=== PATIENT | male | born 1995 | race Caucasian/White ===

== ENCOUNTER 2017-08-11 01:59 | Emergency (ER) | payer MEDICAID ==
[2017-08-11] MEDS ORDERED: LIDOCAINE 5% (700 MG) TRANSDERMAL ADH..PATCH TP ONE (02:36)
--- NOTE | 2017-08-11 04:37 | RADIOLOGY REPORT (SQ) ---
EXAM DESCRIPTION: HIP RIGHT AP/LATERAL COMPLETED DATE/TIME: 08/11/2017 4:20 am REASON FOR STUDY: hip pain COMPARISON: None. NUMBER OF VIEWS: Two views. TECHNIQUE: AP pelvis and additional frog-leg view of the right hip. LIMITATIONS: None. FINDINGS: MINERALIZATION: Normal. RIGHT HIP: No fracture or dislocation. No worrisome bone lesions. LEFT HIP: No fracture or dislocation. No worrisome bone lesions. PUBIS AND ISCHIUM: No fracture. PELVIS: No fracture. SACRUM: No fracture or dislocation. No worrisome bone lesions. LOWER LUMBAR SPINE: No fracture or dislocation. No worrisome bone lesions. No significant disc disea se. SOFT TISSUES: No findings. OTHER: No other significant finding. IMPRESSION: NEGATIVE STUDY OF THE RIGHT HIP. NO RADIOGRAPHIC EVIDENCE OF ACUTE INJURY. TECHNICAL DOCUMENTATION: JOB ID: [id number] [employer]- All Rights Reserved
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
[2017-08-11 04:52] VITALS: BP 98/56
== END 2017-08-11 04:52 | disposition home or self-care (01) ==
LOC: ER 01:59
DX: G89.29 Other chronic pain (principal); M25.551 Pain in right hip; R68.84 Jaw pain; Z98.890 Other specified postprocedural states; F17.200 Nicotine dependence, unspecified, uncomplicated
CPT/HCPCS: 99283; 73502; J3490

== ENCOUNTER 2018-09-05 19:41 | Emergency (ER) | payer MEDICAID ==
--- NOTE | 2018-09-05 21:32 | RADIOLOGY REPORT (SQ) ---
EXAM DESCRIPTION: XR SHOULDER 2 OR MORE VIEWS COMPLETED DATE/TME: 09/05/2018 20:59 CLINICAL HISTORY: 23 years, Male, ? AC separation. but need y view too Findings: Bony alignment is anatomic. No fracture or dislocation. The acromioclavicular joint is intact. Soft tissues are unremarkable. IMPRESSION: No fracture.
--- NOTE | 2018-09-05 21:57 | ER Document Report ---
ED Extremity Problem, Upper - General Chief Complaint: Shoulder Pain Stated Complaint: RIGHT SHOULDER PAIN Time Seen by Provider: 09/05/18 20:48 Mode of Arrival: Ambulatory Information source: Patient Notes: Patient is a 23-year-old male comes emergency room complaint right shoulder pain. Patient states that he has had a shoulder since he was 17 years old playing a basketball game. He also states that he has recently gone through some type of a radiology facility and had his shoulder x-rayed and was told that it is and that it has fluid. Patient states this past week is gotten worse and he is been doing push-ups and he feels it grinding in there and it becomes more painful. Originally patient had indicated that the shoulder was /dislocated since he was 17 years old then it was changed to AC separation. 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 TRAVEL OUTSIDE OF THE [place] IN LAST 30 DAYS: No - HPI Patient complains to provider of: Injury Onset: Other - Acute on chronic shoulder pain Recent injury: Yes Where: Home Quality of pain: Sharp, Throbbing Severity of pain: Moderate, Persistent, Worse Pain Level: 4 Arm and Shoulder (Right): 1 - Area of pain discomfort Associated symptoms: Tingling Exacerbated by: Movement Relieved by: Rest, Positioning Similar symptoms previously: Yes Recently seen / treated by doctor: No - Related Data Allergies/Adverse Reactions: No Known Allergies Allergy (Unverified 08/11/17 02:05) Past Medical History - General Information source: Patient - Social History Smoking Status: Current Every Day Smoker Cigarette use (# per day): Yes - 2 packs a day Chew tobacco use (# tins/day): No Smoking Education Provided: Yes Frequency of alcohol use: None Drug Abuse: None 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 Lives with: Family Family History: Reviewed & Not Pertinent Patient has suicidal ideation: No Patient has homicidal ideation: No Renal/ Medical History: Denies: Hx Peritoneal Dialysis Psychiatric Medical History: Reports: Hx Attention Deficit Hyperactivity Disorder, Hx Bipolar Disorder Past Surgical History: Reports: Hx Oral Surgery - jaw repair, Hx Orthopedic Surgery - left hand Review of Systems - Review of Systems Constitutional: No symptoms reported EENT: No symptoms reported Cardiovascular: No symptoms reported Respiratory: No symptoms reported Gastrointestinal: No symptoms reported Genitourinary: No symptoms reported Male Genitourinary: No symptoms reported Musculoskeletal: Joint pain Skin: No symptoms reported Hematologic/Lymphatic: No symptoms reported Neurological/Psychological: No symptoms reported -: Yes All other systems reviewed and negative Physical Exam - Vital signs Vitals: Temp Pulse Resp BP Pulse Ox 98.1 F 89 18 116/61 98 09/05/18 20:08 09/05/18 20:08 09/05/18 20:08 09/05/18 20:08 09/05/18 20:08 Interpretation: Normal - Notes Notes: PHYSICAL EXAMINATION: GENERAL: Patient is a well-nourished well-developed 23-year-old male who is in no distress on physical exam this evening. HEAD: Atraumatic, normocephalic. NECK: Normal range of motion, supple without lymphadenopathy LUNGS: Breath sounds clear to auscultation bilaterally and equal. No wheezes rales or rhonchi. HEART: Regular rate and rhythm without murmurs Musculoskeletal: Examination patient's area of concern tonight is his right shoulder. Physical comparison with the right versus left there is no abnormalities that I can find. Palpation of the anterior portion of the right shoulder reproduces some discomfort and pain near the rotator cuff area. Also there is an area along the AC line that patient is tender to palpation as well. When you use passive or active motion and hold on near the AC space you can feel crepitus. Patient has good strength on the use of his right hand against re sistance and he also has good flexion-extension at the elbow against resistance. He has a little bit of reduction in strength with resistance on a abduction move abduction does not seem to be as bad. NEUROLOGICAL: Patient is awake alert and oriented x4 PSYCH: Normal mood, normal affect. SKIN: Warm, Dry, normal turgor, no rashes or lesions noted. Course - Re-evaluation Re-evalutation: 09/05/18 22:13 Patient's x-ray was negative for any acute findings either old or acute in that right shoulder. I have informed patient that I can talk to him about the soft tissues in the ligaments and tendons in the area. He may still have injury in that area that we cannot see on x-ray. I would give you the name the orthopedic group and Dr. Concha Longo is irrigation service technician [facility] and he may also contact his primary care provider to see if they can do an MRI outpatient and then schedule a appointment with the orthopedic group. - Vital Signs Vital signs: Temp Pulse Resp BP Pulse Ox 98.1 F 89 18 116/61 98 09/05/18 20:08 09/05/18 20:08 09/05/18 20:08 09/05/18 20:08 09/05/18 20:08 Discharge - Discharge Clinical Impression: Right anterior shoulder pain Condition: Stable Disposition: HOME, SELF-CARE Instructions: Shoulder Injury ([facility]), Rotator Cuff Injury ([facility]) Additional Instructions: Rotator Cuff Injury You may have injured your rotator cuff. This is a group of tendons that form a "cuff" around the upper arm bone. This usually results from an injury that tears the tendons, but sometimes the rotator cuff simply "wears out." If the rotator cuff is only partially torn, time and protection may allow it to heal. This may take several weeks. If the shoulder doesn't become free of pain, surgery may be considered. A complete tear of the rotator cuff requires surgery. If the shoulder is too painful to move, we may need to recheck in a few days. An arthrogram (injecting dye into the joint) or MR scan may be necessary to resolve the question. Initial treatment includes cold packs and a sling to rest the shoulder. We usually prescribe antiinflammatory medication. Be sure to keep your follow up appointment. Call us any time if there's severe pain, numbness, or loss of function. As we discussed did not see any abnormalities on your x-ray by self. This only shows bone so you may have a tendon or ligament damage that I can see on the x- ray. Given that information you may want to talk to your primary care doctor about scheduling you for an MRI of your shoulder which is much more specific and sensitive to tears and other problems. And then schedule you an appointment with the orthopedic group. In the meantime rest is as best medication. Unfortunately I know we will have to work but limited the amount of extra exercise you do until after you can see an orthopedic doctor. Ibuprofen works well for inflammation and pain in this type of his situation. You may return to ER if you need us where here at all times. Forms: Smoking Cessation Education Referrals: CANELO OSMAN MD [ACTIVE STAFF] - Follow up as needed
[2018-09-05 22:22] VITALS: BP 113/66
== END 2018-09-05 22:35 | disposition home or self-care (01) ==
LOC: ER 19:41
DX: M25.511 Pain in right shoulder (principal); F17.210 Nicotine dependence, cigarettes, uncomplicated
CPT/HCPCS: 99283